=== PATIENT | male | born 2000 | race Caucasian/White ===

== ENCOUNTER 2022-02-03 11:36 | Emergency (ER) | payer OTHER ==
[~2022-02-03] VITALS: Ht 180.3 cm; Wt 75.0 kg
[2022-02-03 12:46] LABS: RSV AMPLIFICATION NEGATIVE (NEGATIVE)
[2022-02-03] MEDS ORDERED: ACETAMINOPHEN 500 MG TAB PO ONE (13:00)
[2022-02-03 13:14] VITALS: BP 122/56
== END 2022-02-03 13:15 | disposition home or self-care (01) ==
LOC: M ED 11:36
DX: J09.X2 Influenza due to identified novel influenza A virus with other respiratory manifestations (principal); F17.290 Nicotine dependence, other tobacco product, uncomplicated